=== PATIENT | female | born 1945 | race Caucasian/White ===

== ENCOUNTER → 2017-05-13 | Outpatient (CLI) | payer OTHER ==
[~2017-05-13] VITALS: Ht 163.8 cm; Wt 104.3 kg
[~2017-05-13] MED LIST: ASPIR 8181 M1 PO; CARVEDILOL25 MG PO; CRESTOR40 MG PO; NAPROSYN500 MG PO; RAMIPRIL10 MG PO; SERTRALINE HCL25 MG PO; SPIRONOLACTONE25 MG PO; SYNTHROID75 MCG PO; TEARS NATURALE30 ML BOTH EYES; TRAMADOL HCL50 MG PO; VOLTAREN75 MG PO
[2017-05-13 09:49] LABS: POINT-OF-CARE METER ID UU14174212
== END | disposition home or self-care (01) ==
LOC: AMB 08:54
PROVIDERS: Internal Medicine Gastroenterology
PROC: 0DBK8ZX Excision of Ascending Colon, Via Natural or Artificial Opening Endoscopic, Diagnostic (ICD-10-PCS; principal; 2017-05-13)
DX: C18.2 Malignant neoplasm of ascending colon (principal); K57.90 Diverticulosis of intestine, part unspecified, without perforation or abscess without bleeding; I10 Essential (primary) hypertension; E78.5 Hyperlipidemia, unspecified; E11.9 Type 2 diabetes mellitus without complications; G47.33 Obstructive sleep apnea (adult) (pediatric); E66.9 Obesity, unspecified; Z68.41 Body mass index [BMI] 40.0-44.9, adult; I25.10 Atherosclerotic heart disease of native coronary artery without angina pectoris; E03.9 Hypothyroidism, unspecified; Z79.82 Long term (current) use of aspirin; Z79.899 Other long term (current) drug therapy; Z87.891 Personal history of nicotine dependence; Z88.2 Allergy status to sulfonamides; Z82.49 Family history of ischemic heart disease and other diseases of the circulatory system
CPT/HCPCS: 82948; 88305; J2250; J3010

== ENCOUNTER 2017-06-15 21:46 | Inpatient (IN) | payer OTHER ==
[~2017-06-15] VITALS: Ht 162.6 cm; Wt 110.4 kg
[~2017-06-15 21:46] MED LIST changes: +AMLODIPINE BESYL5 MG PO
[2017-06-16 14:41] VITALS: BP 117/57
[2017-06-16 16:28] VITALS: BP 102/51
[2017-06-16 19:46] VITALS: BP 100/49
[2017-06-16 23:23] VITALS: BP 103/55
[2017-06-17 03:50] VITALS: BP 114/55
[2017-06-17 06:39] LABS: HEMATOCRIT 35.1 % (36.0-46.0); MCH 29.5 PG (29.0-34.0); MCHC 31.6 G/DL (30.0-36.0); MCV 93.4 FL (83-99); MEAN PLAT.VOLUME 11.3 uM^3 (9.5-12.4); PLATELET COUNT 189 K/uL (156-360); RBC DIS.WIDTH-SD 47.8 % (39-53); RED BLOOD COUNT 3.76 M/uL (3.80-5.20); WHITE BLOOD COUNT 12.7 K/uL (4.1-10.2)
[2017-06-17 07:07] LABS: ALKALINE PHOSPHATASE 53 IU/L (3-129); ANION GAP 10 MEQ/L (2-14); CHLORIDE 106 MEQ/L (99-109); GFR ESTIMATE (CALCULATED) 43 mL/min/; POTASSIUM 4.9 MEQ/L (3.7-5.4); SAMPLE HEMOLYSIS CHECK 0; SAMPLE ICTERIC CHECK 0; SAMPLE LIPEMIA CHECK 0; SODIUM 137 MEQ/L (136-147); TOTAL BILIRUBIN 0.4 MG/DL (0.0-1.0); UREA NITROGEN (BUN) 30 mg/dL (9-23)
[2017-06-17 07:08] LABS: GLUCOSE 134 mg/dL (70-99)
[2017-06-17 08:08] VITALS: BP 101/50
[2017-06-17 11:50] VITALS: BP 110/54
[2017-06-17 16:04] VITALS: BP 129/58
[2017-06-17 20:11] VITALS: BP 102/61
[2017-06-18 00:32] VITALS: BP 109/58
[2017-06-18 04:04] VITALS: BP 105/58
[2017-06-18 08:30] VITALS: BP 112/56; BP 142/89
[2017-06-18 11:57] VITALS: BP 99/54
[2017-06-18 16:03] VITALS: BP 126/58
[2017-06-18 19:18] VITALS: BP 127/61
[2017-06-19 00:30] VITALS: BP 102/50
[2017-06-19 05:42] VITALS: BP 85/48
[2017-06-19 07:53] VITALS: BP 97/55
[2017-06-19 12:03] VITALS: BP 96/53
[2017-06-19 16:09] VITALS: BP 94/53
[2017-06-19 19:36] VITALS: BP 104/53
[2017-06-20 00:38] VITALS: BP 113/62
[2017-06-20 05:05] VITALS: BP 128/70
[2017-06-20 07:01] LABS: HEMATOCRIT 33.6 % (36.0-46.0); MCH 30.2 PG (29.0-34.0); MCHC 32.4 G/DL (30.0-36.0); MCV 93.1 FL (83-99); MEAN PLAT.VOLUME 11.3 uM^3 (9.5-12.4); PLATELET COUNT 185 K/uL (156-360); RBC DIS.WIDTH-CV 14.4 % (11.8-14.6); RBC DIS.WIDTH-SD 49.2 % (39-53); RED BLOOD COUNT 3.61 M/uL (3.80-5.20); WHITE BLOOD COUNT 6.8 K/uL (4.1-10.2)
[2017-06-20 08:11] VITALS: BP 117/56
[2017-06-20 08:23] VITALS: BP 135/64
[2017-06-20 16:44] VITALS: BP 130/62
[2017-06-20 20:10] VITALS: BP 128/56
[2017-06-21 00:17] VITALS: BP 129/74
[2017-06-21 03:46] VITALS: BP 124/63
[2017-06-21 08:07] VITALS: BP 121/58
[2017-06-21 12:25] VITALS: BP 133/65
[2017-06-21 16:26] VITALS: BP 119/62
[2017-06-21 23:29] VITALS: BP 140/60
[2017-06-22 08:14] VITALS: BP 123/65
== END 2017-06-22 11:59 | disposition home or self-care (01) | DRG 330 ==
LOC: ENRESERV 21:46 → 2SOUTH 06-16 06:53 → 3EAST 06-16 06:53 → 2SOUTH 06-16 11:13 → ENRESERV 06-16 11:36 → 3EAST 06-16 14:14 → 2SOUTH 06-16 15:54 → 3EAST 06-22 11:59
PROVIDERS: Physician Assistant Surgical; Surgery
PROC: 0DTF0ZZ Resection of Right Large Intestine, Open Approach (ICD-10-PCS; principal; 2017-06-16)
DX: C18.2 Malignant neoplasm of ascending colon (principal); I10 Essential (primary) hypertension; E03.9 Hypothyroidism, unspecified; E66.9 Obesity, unspecified; G47.30 Sleep apnea, unspecified; E78.00 Pure hypercholesterolemia, unspecified; F32.9 Major depressive disorder, single episode, unspecified; E78.5 Hyperlipidemia, unspecified; I25.10 Atherosclerotic heart disease of native coronary artery without angina pectoris; Z87.891 Personal history of nicotine dependence; Z88.2 Allergy status to sulfonamides; Z79.82 Long term (current) use of aspirin; Z68.41 Body mass index [BMI] 40.0-44.9, adult
CPT/HCPCS: 80048; 80053; 81003; 82378 GA; 85025; 85027; 86900; 86901; 86920; 88305; 88309; 94660; 94799; J0330; J1100; J1644; J2250; J2405; J2710; J3010; J7030; S0028